=== PATIENT | female | born 1970 | race Caucasian/White ===

== ENCOUNTER → 2018-09-11 | Outpatient (CLI) | payer BC ==
[2018-09-11 08:29] LABS: HCT 40.2 % (34.0-46.0); HGB 12.9 gm/dL (11.4-16.0); MCH 30.6 pg (25.0-35.0); MCHC 32.1 g/dL (31.0-37.0); MCV 95.1 fL (80.0-100.0); Mean Platelet Volume 7.4; Platelet Count 226 k/uL (150-450); RBC 4.23 m/uL (3.80-5.40); RDW 13.4 % (11.5-15.5)
[2018-09-11 08:50] LABS: T4, Free (Free Thyroxine) 1.14 ng/dL (0.78-2.19)
--- NOTE | 2018-09-12 11:05 | MM ---
Reason for exam: screening (asymptomatic). Last mammogram was performed 2 years and 9 months ago. History: Took hormonal contraceptives for 8 years. Physical Findings: A clinical breast exam by your physician is recommended on an annual basis and results should be correlated with mammographic findings. MG Screening Mammo w CAD Bilateral CC and MLO view(s) were taken. Prior study comparison: December 21, 2015, bilateral MG diagnostic mammo w CAD [facility]. July 06, 2012, bilateral digital screening mammo w/CAD. The breast tissue is extremely dense which could obscure a lesion on mammography. There is no discrete abnormality. No significant changes when compared with prior studies. ASSESSMENT: Negative, BI-RAD 1 RECOMMENDATION: Routine screening mammogram of both breasts in 1 year.
== END | disposition home or self-care (01) ==
LOC: RADMAMWWP 07:36
PROVIDERS: ATTEND Obstetrics & Gynecology
DX: Z12.31 Encounter for screening mammogram for malignant neoplasm of breast (principal); Z13.220 Encounter for screening for lipoid disorders; Z13.29 Encounter for screening for other suspected endocrine disorder
CPT/HCPCS: 36415; 77067; 80061; 84439; 84443; 84479; 85027

== ENCOUNTER → 2022-11-08 | Outpatient (CLI) | payer BC ==
[2022-11-08 11:28] LABS: HCT 43.5 % (37.2-46.3); HGB 14.2 d/dL (12.0-15.0); MCH 31.6 pg (27.0-32.0); MCHC 32.6 d/dL (32.0-37.0); MCV 96.7 FL (80.0-97.0); Mean Platelet Volume 10.7 FL (9.5-12.2); NRBC Per 100 WBC 0 X 10*3/uL (0.00-0.01); Platelet Count 238 X 10*3/uL (140-440); RDW 12.5 % (11.5-14.5); WBC 6.06 X 10*3/uL (4.50-10.00)
[2022-11-08 13:37] LABS: ALT 11 U/L (8-44); AST 21 U/L (13-35); Albumin 4.4 d/dL (3.8-4.9); Albumin/Globulin Ratio 1.29 Ratio (1.60-3.17); Alkaline Phosphatase 63 U/L (41-126); BUN/Creat Ratio 15.75 Ratio (12.00-20.00); Blood Urea Nitrogen 12.6 mg/dL (9.0-27.0); Calcium 9.3 mg/dL (8.7-10.3); Carbon Dioxide 26.3 mmol/L (21.6-31.8); Chloride 105 mmol/L (96-109); Chol/HDL Ratio 2.63 Ratio; Globulin 3.4 d/dL (1.6-3.3); Glucose 85 mg/dL (70-110); LDL Cholesterol,Calculated 109.7 mg/dL (0.0-131.0); Potassium 4.2 mmol/L (3.5-5.5); Sodium 141 mmol/L (135-145); T4, Free (Free Thyroxine) 1.12 ng/dL (0.80-1.80); Total Bilirubin 0.4 mg/dL (0.3-1.2); Total Protein 7.8 d/dL (6.2-8.2); VLDL Calculation 14.92 mg/dL (5.00-40.00)
--- NOTE | 2022-11-09 08:54 | MM ---
Reason for Exam: Screening (asymptomatic). Last mammogram was performed 4 year(s) and 2 month(s) ago. Patient History: Menarche at age 12. First Full-Term at age 24. Postmenopausal. Patient used Hormonal Contraceptives for 8 years. Risk Values: Tamara 5 year model risk: 1.2%. NCI Lifetime model risk: 8.5%. Prior Study Comparison: 07/06/2012 Bilateral Screening Mammogram, [facility]. 12/21/2015 Bilateral Diagnostic Mammogram, [facility]. 09/11/2018 Bilateral Screening Mammogram, [facility]. Tissue Density: The breast tissue is heterogeneously dense. This may lower the sensitivity of mammography. Findings: Analyzed By CAD. There is no suspicious group of microcalcifications or new suspicious mass. Overall Assessment: Negative, BI-RAD 1 Management: Screening Mammogram of both breasts in [address] [facility] will attempt to contact patient to return for supplemental views and ultrasound if indicated. Patient should continue monthly self-breast exams. A clinical breast exam by your physician is recommended on an annual basis. This exam should not preclude additional follow-up of suspicious palpable abnormalities. Note on Tamara scores and lifetime risk: 1. A Tamara score greater than 3% is considered moderate risk. If this is the case, consider specialist referral to assess eligibility for a risk reducing agent. 2. If overall lifetime risk for the development of breast cancer is 20% or higher, the patient may qualify for future screening with alternating mammogram and breast MRI. Electronically signed and approved by: Gregory Aguilar DO
== END | disposition home or self-care (01) ==
LOC: RADMAMWWP 07:45
PROVIDERS: ATTEND Obstetrics & Gynecology
DX: Z12.31 Encounter for screening mammogram for malignant neoplasm of breast (principal); Z13.220 Encounter for screening for lipoid disorders; Z13.29 Encounter for screening for other suspected endocrine disorder; Z78.0 Asymptomatic menopausal state
CPT/HCPCS: 77067; 80053; 80061; 84439; 84443; 84479; 85027

== ENCOUNTER → 2024-07-05 | Outpatient (CLI) | payer BC ==
--- NOTE | 2024-07-05 08:49 | MM ---
Reason for Exam: Screening (asymptomatic). Last mammogram was performed 1 year(s) and 8 month(s) ago. Patient History: Menarche at age 12. First Full-Term at age 24. Postmenopausal. Patient used Hormonal Contraceptives for 8 years. Risk Values: Tamara 5 year model risk: 1.2%. NCI Lifetime model risk: 8.3%. Prior Study Comparison: 07/06/2012 Bilateral Screening Mammogram, [facility]. 12/21/2015 Bilateral Diagnostic Mammogram, [facility]. 09/11/2018 Bilateral Screening Mammogram, [facility]. 11/08/2022 Bilateral MG screening mammo w CAD, [facility]. Tissue Density: The breasts are heterogeneously dense, which may obscure small masses. Findings: Analyzed By CAD. Right breast: There is no suspicious group of microcalcifications or new suspicious mass. Left breast: There is no suspicious group of microcalcifications or new suspicious mass. Overall Assessment: Negative, BI-RAD 1 Management: Screening Mammogram of both breasts in [address] [facility] will attempt to contact patient to return for supplemental views and ultrasound if indicated. Patient should continue monthly self-breast exams. A clinical breast exam by your physician is recommended on an annual basis. This exam should not preclude additional follow-up of suspicious palpable abnormalities. Note on Tamara scores and lifetime risk: 1. A Tamara score greater than 3% is considered moderate risk. If this is the case, consider specialist referral to assess eligibility for a risk reducing agent. 2. If overall lifetime risk for the development of breast cancer is 20% or higher, the patient may qualify for future screening with alternating mammogram and breast MRI. [facility], , 07/05/2024 8:47 AM. Electronically signed and approved by: Gregory Aguilar DO
--- NOTE | 2024-07-05 10:05 | BD ---
EXAMINATION TYPE: Axial Bone Density DATE OF EXAM: 07/05/2024 CLINICAL HISTORY: 53 years old Female. ICD-10 CODE: [id number] SCREENING FOR OSTEO , Additional History: Height: 60.5 Weight: 111.3 FRAX RISK QUESTIONS: Alcohol (3 or more units per day): no Family History (Parent hip fracture): no Glucocorticoids (More than 3mos): no (Ex: prednisone, prednisolone, methylprednisolone, dexamethasone, and hydrocortisone). History of Fracture in Adulthood: no Secondary Osteoporosis: 1. Type 1 Diabetes: no 2. Hyperthyroidism: no 3. Menopause before 45: no 4. Malnutrition: no 5. Chronic liver disease: no Rheumatoid Arthritis: no Current Tobacco Use: no RISK FACTORS HISTORY OF: Hip Fracture (Right/Left): no Spine Fracture: no History of Wrist Fracture: no Surgery to Spine/Hip(right/left)/Wrist (right/left): no MEDICATIONS: Thyroid Medications: no Osteoporosis Medications: no EXAM MEASUREMENTS: Bone mineral densitometry was performed using the AWAK System. Bone mineral density as measured about the Lumbar spine is: ----- L1-L4(G/cm2): 0.972 T Score Values are as follows: ----- L1: -2.1 ----- L2: -1.2 ----- L3: -0.9 ----- L4: -2.7 ----- L1-L4: -1.7 Z Score Values are as follows: ----- L1: -0.8 ----- L2: 0.1 ----- L3: 0.5 ----- L4: -1.3 ----- L1-L4: -0.4 Baseline Study Bone mineral density about the R hip (g/cm2): 0.806 Bone mineral density about the L hip (g/cm2): 0.783 T Score values are as follows: -----R Neck: -1.3 -----L Neck: -1.7 -----R Total: -1.6 -----L Total: -1.8 Z Score values are as follows: -----R Neck: 0.0 -----L Neck: -0.4 -----R Total: -0.6 -----L Total: -0.7 Baseline Study FRAX%s: The graph provided illustrates a 6.8% chance for a major osteoporotic fx and a 0.7% chance fo r the hips probability for fx in 10 years time. IMPRESSION: Osteopenia (T Score between -2.5 and -1). There is slightly increased risk of fracture and the patient may be considered for treatment. Re-Screen 2-5 years. NOTE: T-SCORE=SD OF THE YOUNG ADULT MEAN. [facility], , 07/05/2024 10:03 AM
== END | disposition home or self-care (01) ==
LOC: RADMAMWWP 08:19
PROVIDERS: ATTEND Family Medicine
DX: Z12.31 Encounter for screening mammogram for malignant neoplasm of breast (principal); Z13.820 Encounter for screening for osteoporosis; N95.1 Menopausal and female climacteric states; R92.333 Mammographic heterogeneous density, bilateral breasts; Z92.0 Personal history of contraception; M85.89 Other specified disorders of bone density and structure, multiple sites
CPT/HCPCS: 77067; 77080